=== PATIENT | female | born 1980 | race Caucasian/White ===

== ENCOUNTER 2024-12-02 23:38 | Outpatient (CLI) | payer OTHER, SELFPAY | END 2024-12-02 23:39 | disposition home or self-care (01) | LOC: AMB 12-05 00:51 | PROVIDERS: PCP Family Medicine; Visit Provider Internal Medicine | DX: N93.9 Abnormal uterine and vaginal bleeding, unspecified (principal) | CPT/HCPCS: A0425; A0427 ==